=== PATIENT | male | born 1980 | race African-American/Black ===

== ENCOUNTER 2019-01-12 11:26 | Inpatient (IN) | payer OTHER ==
[~2019-01-12] VITALS: Ht 172.7 cm; Wt 86.2 kg
[~2019-01-12 11:26] MED LIST: AVAPRO300 MG PO; CARDURA1 MG PO; NIFE60TA3 PO
--- NOTE | 2019-01-12 11:39 | NUR ---
SE RECIBE PTE ALERTA Y ORIENTADO X3,REFIERE INFLAMACION EN LA JOO DESDE EL FRANNY.
--- NOTE | 2019-01-12 12:19 | NUR ---
SE ORIENTA AL PACIENTE SOBRE MUESTRAS A SER COLECTADAS NAZ ORDEN MEDICA. PACIENTE REFIERE ENTENER. SE CANALIZA AL PACIENTE NAZ ORDEN MEDICA UTILIZANDO MEDIDAS ASEPTICAS. SE VERIFICA LA PATENTICIDAD DE LA MISMA Y LA MISMA ESTA PANTENTE, MAYRA DE EDEMA Y ENROJECIMIENTO. PACIENTE ES UBICADO A MONITOR CARDIACO. SE ORIENTA TAMBIEN SOBRE XRAY CHEST PA & LATERAL.
--- NOTE | 2019-01-12 14:51 | NUR ---
SE RECIBE PT A UNIDAD DE ICU-2 Y SE IBICA EN CAMA #1 CONECTADO A MNONITOR CARDIACO Y OXIMETRIA DE PUL[place]. SE OBSERVA PT CON EDEMA FACIAL Y EN AREA DE TESTICULOS. SE LE ORIENTA SOBRE TX A PT Y ZITA Y SE LE COMIENZA 0.9MNSS + 150 MEQ BICARBONATO BAJANDO A 100ML/HR POR VENOPUNCION EN BRAZO RT. PATENTE, AREA MAYRA DE EDEMA Y ERITEMA. SE LE COLECTAN MUESTRAS BAJO MEDIDAS ASEPTICAS PT [place]. SE NOTIFICA CONSULTA A DR KARLA DICKSON Y SE LE INSERTA JARQUIN # 16 BAJO MEDIDAS ESTERILES PT [place]. SE MANTIENE A GRAVEDAD SONDA URINARIA DRENANDO LEROY SANCHEZ.
--- NOTE | 2019-01-12 15:18 | NUR ---
SE LE REALIZA EKG Y SE PRESENTA A DR THAKKAR QUIEN EVALUA EL MISMO.
--- NOTE | 2019-01-12 15:29 | NUR ---
SE RECIBE PTE EN EL AREA DE CRITICO EN EL CUBICULO #1 EN CAMA CON BARANDAS ELEVADA Y TIMBRE ACCESIBLE PTE ALERTA Y CONCIENTE POR EL MOMENTO PTE CONECTADO A MONITOR CARDIACO Y OXYMETRIA DE PUL[place], PTE NO PRESENTA DOLOR AL MOENTO SEOBSERVA VENOPUNCION PATENTE Y MAYRA DE EDEMA. PTE SE MANTIENE EN OBSERVACION Y BAJO TRATAMIENTO EN ESPERA DEL DR OWENS
[2019-01-26] MEDS ORDERED: LOSARTAN POTASS50 MG PO (16:08)
[2019-01-26] MEDS ORDERED: NIFEDIPINE ER30 MG PO (16:08)
== END 2019-01-26 16:48 | disposition home or self-care (01) | DRG 673 ==
LOC: ER 11:26 → ICU-2 16:49 → MEDJ 16:49 → ICU 01-14 00:34 → MEDJ 01-15 17:36
PROVIDERS: ADMIT Internal Medicine
PROC: 0JHL3XZ Insertion of Tunneled Vascular Access Device into Right Upper Leg Subcutaneous Tissue and Fascia, Percutaneous Approach (ICD-10-PCS; principal; 2019-01-12)
PROC: 4A033R1 Measurement of Arterial Saturation, Peripheral, Percutaneous Approach (ICD-10-PCS; 2019-01-12)
PROC: 0T9B70Z Drainage of Bladder with Drainage Device, Via Natural or Artificial Opening (ICD-10-PCS; 2019-01-12)
PROC: 5A1D70Z Performance of Urinary Filtration, Intermittent, Less than 6 Hours Per Day (ICD-10-PCS; 2019-01-13)
PROC: 30233N1 Transfusion of Nonautologous Red Blood Cells into Peripheral Vein, Percutaneous Approach (ICD-10-PCS; 2019-01-13)
PROC: BT4JZZZ Ultrasonography of Kidneys and Bladder (ICD-10-PCS; 2019-01-13)
PROC: B246ZZZ Ultrasonography of Right and Left Heart (ICD-10-PCS; 2019-01-18)
PROC: B54PZZZ Ultrasonography of Bilateral Upper Extremity Veins (ICD-10-PCS; 2019-01-20)
PROC: 0JH63XZ Insertion of Tunneled Vascular Access Device into Chest Subcutaneous Tissue and Fascia, Percutaneous Approach (ICD-10-PCS; 2019-01-25)
DX: N17.8 Other acute kidney failure (principal); A41.01 Sepsis due to Methicillin susceptible Staphylococcus aureus; R65.20 Severe sepsis without septic shock; E87.2 Acidosis; I12.0 Hypertensive chronic kidney disease with stage 5 chronic kidney disease or end stage renal disease; I30.8 Other forms of acute pericarditis; I96 Gangrene, not elsewhere classified; N18.6 End stage renal disease; R31.29 Other microscopic hematuria; D63.1 Anemia in chronic kidney disease; I51.7 Cardiomegaly; I87.2 Venous insufficiency (chronic) (peripheral); L89.142 Pressure ulcer of left lower back, stage 2; E87.6 Hypokalemia; N39.8 Other specified disorders of urinary system; B95.61 Methicillin susceptible Staphylococcus aureus infection as the cause of diseases classified elsewhere; B95.1 Streptococcus, group B, as the cause of diseases classified elsewhere; E66.09 Other obesity due to excess calories; Z68.30 Body mass index [BMI] 30.0-30.9, adult; Z99.2 Dependence on renal dialysis

== ENCOUNTER 2019-03-06 15:07 | Emergency (ER) | payer OTHER ==
[~2019-03-06] VITALS: Ht 172.7 cm; Wt 84.8 kg
[~2019-03-06 15:07] MED LIST changes: +LOSARTAN POTASS50 MG PO; +NIFEDIPINE ER30 MG PO
== END 2019-03-06 17:57 | disposition home or self-care (01) ==
LOC: ER 15:07
DX: R07.89 Other chest pain (principal)

== ENCOUNTER 2019-03-18 08:47 | Outpatient (CLI) | payer OTHER | END 2019-03-18 09:30 | disposition home or self-care (01) | LOC: TOM 08:47 | DX: K40.90 Unilateral inguinal hernia, without obstruction or gangrene, not specified as recurrent (principal); K46.9 Unspecified abdominal hernia without obstruction or gangrene ==

== ENCOUNTER 2019-04-05 16:12 | Emergency (ER) | payer OTHER ==
[~2019-04-05] VITALS: Ht 172.7 cm; Wt 83.9 kg
== END 2019-04-05 18:18 | disposition home or self-care (01) ==
LOC: ER 16:12
DX: S90.112A Contusion of left great toe without damage to nail, initial encounter (principal); W22.8XXA Striking against or struck by other objects, initial encounter; Y93.89 Activity, other specified; Y92.89 Other specified places as the place of occurrence of the external cause; Y99.8 Other external cause status

== ENCOUNTER 2019-04-26 15:27 | Emergency (ER) | payer OTHER ==
[~2019-04-26] VITALS: Ht 172.7 cm; Wt 86.2 kg
== END 2019-04-26 19:06 | disposition home or self-care (01) ==
LOC: ER 15:27
DX: K40.90 Unilateral inguinal hernia, without obstruction or gangrene, not specified as recurrent (principal); R00.0 Tachycardia, unspecified

== ENCOUNTER 2019-12-20 08:53 | Emergency (ER) | payer OTHER ==
[~2019-12-20] VITALS: Ht 175.3 cm; Wt 97.5 kg
== END 2019-12-20 14:38 | disposition home or self-care (01) ==
LOC: ER 08:53 → CPU-OBS 08:58 → ER 14:38
DX: I12.0 Hypertensive chronic kidney disease with stage 5 chronic kidney disease or end stage renal disease (principal); N18.6 End stage renal disease; N17.8 Other acute kidney failure; R19.7 Diarrhea, unspecified; R50.9 Fever, unspecified; R42 Dizziness and giddiness; R00.0 Tachycardia, unspecified; Z03.818 Encounter for observation for suspected exposure to other biological agents ruled out; Z99.2 Dependence on renal dialysis

== ENCOUNTER 2019-12-20 23:11 | Inpatient (IN) | payer OTHER ==
[~2019-12-20] VITALS: Ht 167.6 cm; Wt 250.0 kg
== END 2019-12-26 12:07 | disposition left against medical advice (07) | DRG 314 ==
LOC: ER 23:11 → ICU-2 12-21 14:45 → SURH 12-23 23:46
PROVIDERS: ADMIT Internal Medicine; ATTEND Internal Medicine
PROC: 4A033R1 Measurement of Arterial Saturation, Peripheral, Percutaneous Approach (ICD-10-PCS; principal; 2019-12-22)
PROC: B24BZZZ Ultrasonography of Heart with Aorta (ICD-10-PCS; 2019-12-22)
PROC: 05PYX3Z Removal of Infusion Device from Upper Vein, External Approach (ICD-10-PCS; 2019-12-22)
PROC: 3E0F7SF Introduction of Other Gas into Respiratory Tract, Via Natural or Artificial Opening (ICD-10-PCS; 2019-12-22)
PROC: CB2YYZZ Tomographic (Tomo) Nuclear Medicine Imaging of Respiratory System using Other Radionuclide (ICD-10-PCS; 2019-12-24)
DX: T80.211A Bloodstream infection due to central venous catheter, initial encounter (principal); A41.01 Sepsis due to Methicillin susceptible Staphylococcus aureus; N18.6 End stage renal disease; R65.21 Severe sepsis with septic shock; T82.41XA Breakdown (mechanical) of vascular dialysis catheter, initial encounter; E87.2 Acidosis; I13.11 Hypertensive heart and chronic kidney disease without heart failure, with stage 5 chronic kidney disease, or end stage renal disease; Z99.2 Dependence on renal dialysis; Z79.4 Long term (current) use of insulin; E66.8 Other obesity; Z68.30 Body mass index [BMI] 30.0-30.9, adult; D69.49 Other primary thrombocytopenia; R09.02 Hypoxemia; Z20.828 Contact with and (suspected) exposure to other viral communicable diseases; Y83.8 Other surgical procedures as the cause of abnormal reaction of the patient, or of later complication, without mention of misadventure at the time of the procedure; Z53.29 Procedure and treatment not carried out because of patient's decision for other reasons; D63.1 Anemia in chronic kidney disease; E11.22 Type 2 diabetes mellitus with diabetic chronic kidney disease

== ENCOUNTER → 2020-03-25 | Emergency (ER) | payer OTHER | END | disposition left against medical advice (07) | LOC: ER 02:20 | DX: Z53.21 Procedure and treatment not carried out due to patient leaving prior to being seen by health care provider (principal) ==

== ENCOUNTER 2020-09-18 06:27 | Outpatient (CLI) | payer OTHER | END 2020-09-18 06:28 | disposition home or self-care (01) | LOC: LAB 06:27 | PROVIDERS: ATTEND Surgery | DX: R31.0 Gross hematuria (principal) ==

== ENCOUNTER → 2020-10-02 06:42 | Outpatient (CLI) | payer OTHER | END | disposition home or self-care (01) | LOC: LAB 06:42 | PROVIDERS: ATTEND Internal Medicine Nephrology | DX: N18.6 End stage renal disease (principal); Z01.83 Encounter for blood typing ==

== ENCOUNTER 2020-10-03 07:06 | Outpatient (CLI) | payer OTHER | END 2020-10-03 07:11 | disposition home or self-care (01) | LOC: LAB 07:06 | PROVIDERS: ATTEND Internal Medicine Nephrology | DX: R19.5 Other fecal abnormalities (principal); N18.6 End stage renal disease ==

== ENCOUNTER 2020-11-14 11:35 | Emergency (ER) | payer OTHER ==
[~2020-11-14] VITALS: Ht 172.7 cm; Wt 90.7 kg
== END 2020-11-14 16:44 | disposition home or self-care (01) ==
LOC: ER 11:35
DX: B34.9 Viral infection, unspecified (principal); Z20.822 Contact with and (suspected) exposure to COVID-19